=== PATIENT | female | born 1970 | race Caucasian/White ===

== ENCOUNTER 2017-04-19 11:26 | Emergency (ER) | payer OTHER ==
[2017-04-19 11:32] VITALS: BP 149/79
[2017-04-19] MEDS ORDERED: [UNRECOGNIZED DRUG - OTHER] ONE (12:00)
[2017-04-19] MEDS ORDERED: [UNRECOGNIZED DRUG - OTHER] LEFTEYE ONE (12:00)
--- NOTE | 2017-04-19 12:07 | ERNOTE ---
ENT HPI Date of Service: 04/19/17 Presenting Symptoms: eye pain Time Seen by Provider: 04/19/17 11:45 Source: patient Exam Limitations: no limitations - Immun/Allergies/Home Medications Immunizations: IMMUNIZATION HX Immunizations Up to Date Yes History of Influenza Vaccine Yes Allergies/Adverse Reactions: Allergies Allergy/AdvReac Type Severity Reaction Status Date / Time erythromycin base Allergy Mild Hives, rash Verified 04/19/17 11:32 azithromycin [From Zithromax] Allergy Unknown Verified 04/19/17 11:32 Home Medications: HOME MEDICATIONS ALPRAZolam [Xanax] 0.25 mg PO TID PRN 09/10/15 [Last Taken Unknown] Levothyroxine Sodium [Synthroid] 150 mcg PO DAILY 09/10/15 [Last Taken Unknown] Multivitamins [Multivitamin Mary] 1 cap PO DAILY 09/10/15 [Last Taken Unknown] Solon-3 Fatty Acids/Fish Oil [Fish Oil 1,000 mg Capsule] 1 each PO DAILY [Last Taken Unknown] Senna/Fennel [Natural Veg Laxative Tablet] 3 each PO DAILY 09/10/15 [Last Taken Unknown] Bacitracin [Bacitracin Ophthalmic] 3.5 gm LEFTEYE BID #1 tube 04/19/17 [Last Taken Unknown] Oxybutynin Chloride [Ditropan Xl] 10 mg PO DAILY 04/19/17 [Last Taken Unknown] Venlafaxine HCl [Effexor] 75 mg PO DAILY 04/19/17 [Last Taken Unknown] - History of Present Illness Narrative: patient present to the ED for left eye pain and redness. states it started Thursday night and has progressively gotten worse. . she did try a warm compress x1. Date (Duration): 04/19/17 Severity: Present: mild ENT Location: Present: eye (L) Prearrival Treatment: Present: over the counter meds, flushing eys Modifying Factors - Improves: Reports: nothing Modifying Factors - Worsens: Reports: nothing Associated Symptoms - ENT: Reports: denies symptoms Review of Systems - Review of Systems Constitutional: Present: no symptoms reported EYE: Present: see HPI, eye pain. Absent: eye discharge, blurred vision, double vision, vision changes, tearing ENT: Present: no symptoms reported Respiratory: Present: no symptoms reported Cardiology: Present: no symptoms reported Gastrointestinal/Abdominal: Present: no symptoms reported Genitourinary: Present: no symptoms reported Musculoskeletal: Present: no symptoms reported Skin: Present: no symptoms reported Neurological: Present: no symptoms reported Endocrine: Present: no symptoms reported Hematologic/Lymphatic: Present: no symptoms reported Psych: Present: no symptoms reported All Other Systems: All systems neg except as marked - Patient's Past Medical History Patient History - Medical: Depression, Hypothyroidism, Kidney stone, UTI'S, Other Patient History - Cardiac/Respiratory: No pertinent hx Patient History - Cancer: No Hx of Cancer Patient History - Surgical Procedures: Back Surgery, Other, Orthopedic Patient History - Other: None - Social History Living Situations: spouse Abuse History: No History of abuse Psych History: Current tx/ever been on anti-depressants or anti-anxiety meds, Hx of Anxiety, Hx of Depression Smoking Status: Never smoker Have you smoked in the past 12 months: No Alcohol Use: occasionally Drug Use: none - Immunizations Immunizations Up to Date: Yes History of Influenza Vaccine: Yes Physical Exam - Physical Exam Narrative: redness to bottom eye lid with a small white head. redness and tenderness to lower lid General Appearance: Present: wd/wn, alert, no apparent distress Head Exam: Present: no evidence of injury, tenderness Eye Exam: Normal inspection: bilateral, PERRL: bilateral, EOMI: bilateral Ears, Nose, Throat: Present: normal ENT inspection, normal pharynx Neck: Present: normal inspection, nontender Respiratory: Present: no respiratory distress, normal breath sounds, no accessory muscle use, chest nontender, lungs clear Cardiovascular/Chest: Present: regular rate, rhythm, no murmur, normal peripheral pulses Gastrointestinal/Abdominal: Present: normal bowel sounds, nontender, nondistended, soft, no organomegaly Extremity Exam: Present: normal inspection, non-tender, normal range of motion, no edema Neurological Exam: Present: alert, oriented, normal mood/affect, no motor/ sensory deficits Skin Exam: Present: normal color, warm/dry, other Lymphatic Exam: Present: no adenopathy ED Progress - Vital Signs Patient's Vital Signs:: I have reviewed the patient's vital signs. Vital Signs: Vital Signs 04/19/17 11:29 Temperature 36.7 C Pulse Rate 73 Respiratory 12 Rate Blood Pressure 149/79 O2 Sat by Pulse 100 Oximetry - Progress/Reassessment Chief Complaint: Eye Injury/Trauma Progress:: Improved Plan - Plan Plan: Patient will return to the emergency room or follow-up with her eye doctor or primary care provider if symptoms worsen or persist. Departure Clinical Impression: Hordeolum Qualifiers: Hordeolum type: internum Laterality: left Eyelid: lower Qualified Code(s): H00.025 - Hordeolum internum left lower eyelid - Departure Disposition: Home Follow Up Needed Condition: Stable Instructions: Stye Additional Instructions: Continue any previous home medications as prescribed. She may do a warm compress to her face for 10 minutes 4 times a day to help with pain. Follow up with her primary care doctor or Eye doctor in the next few days if needed. Return to the emergency room if symptoms persist or become worse or if she develops a fever. Referrals: Seth Burgos DO [Primary Care Provider] - Prescriptions: Bacitracin [Bacitracin Ophthalmic] 3.5 gm LEFTEYE BID #1 tube
== END 2017-04-19 12:10 | disposition home or self-care (01) ==
LOC: ER 11:26
DX: H00.025 Hordeolum internum left lower eyelid (principal); F32.89 Other specified depressive episodes; E03.9 Hypothyroidism, unspecified

== ENCOUNTER 2017-07-23 06:56 | Day surgery (SDC) | payer OTHER ==
[~2017-07-23 06:56] MED LIST: RINGER'S SOLUTION,LACTATED 1,000 ML IV PRN
[2017-07-23] MEDS ORDERED: RINGER'S SOLUTION,LACTATED 1,000 ML IV ONE (07:40)
[2017-07-23] MEDS ORDERED: SCOPOLAMINE HYDROBROMIDE 1.5 MG PATC TD ONE ×2 (08:05→08:30)
[2017-07-23] MEDS ORDERED: BUPIVACAINE HCL/EPINEPHRINE/PF 30 ML VIAL IJ ONE (09:00)
[2017-07-23] MEDS ORDERED: traMADol HCL 50 MG TABLET ONE (10:04)
[2017-07-23 10:50] VITALS: BP 141/74
[2017-07-23] MEDS ORDERED: traMADol HCL 50 MG TABLET PO ONE (11:00)
[2017-07-23] MEDS ORDERED: IBUPROFEN 800 MG TABLET PO ONE (11:00)
--- NOTE | 2017-07-23 11:27 | OR ---
Operative Report - Dictated Report Narrative: Operative report: 07/23/2017 Preoperative diagnosis: Right Hydrosalpinx Postoperative diagnosis: Right pelvic congestion Procedure: Diagnostic laparoscopy with right salpingectomy Surgeon: Gwen Barry D.O. Compound Specialist: OR staff Anesthesia: Gen. IV fluids: 300 Milliliters Urine output: Minimal amount of clear urine Findings: Absent left fallopian tube and ovary, slightly enlarged right fallopian tube with multiple dilated and torturous blood vessels within the broad ligament, normal-appearing right ovary with small simple ovarian cyst, evidence of gastric bypass with omental adhesions to the anterior vertical supraumbilical scar peritoneum, bowel that was in the left upper quadrant had white strands of tissue adherent to the bowel EBL: Minimal Drains: None Pathology: Right fallopian tubes Complications: None Condition: Stable The patient was taken to the operating room. Anesthesia was found to be adequate. The patient was prepped and draped in the normal sterile fashion in the dorsal lithotomy position. A sterile speculum was then inserted into the vagina. The Gemisimo uterine manipulator was then inserted into the uterus. The speculum was removed. A red rubber was then inserted into the bladder to drain throughout the procedure. Attention was then turned to the abdomen. Local anesthetic was then injected within the umbilicus. A 5 mm skin incision was then made with the scalpel. A hemostat was then used to bluntly dissect down to the fascia. The 5 mm camera was then inserted into the trocar and under direct visualization inserted into the abdomen. The abdomen was then insufflated to 12 mmHg. The abdomen was then surveyed and noted as above. General surgery was called to inspect the left upper quadrant bowel and this was noted to be benign and postsurgical changes related to her gastric bypass surgery. Attention was then turned to the left lower quadrant, the peritoneum was mapped with local anesthetic, skin incised, subcutaneous tissue bluntly dissected, and an 8 mm trocar entered into the peritoneum under direct visualization. This was all repeated in the right lower quadrant with a 5 mm trocar. The fallopian tube was then grasped. Electrocautery was then used to sequentially cauterize, cut, and remove the entire fallopian tube. The fallopian tubes were then removed under direct visualization and sent to pathology. The pedicles were again cauterized, and then inspected and found to be hemostatic. The abdomen was then desufflated. The trochars were removed under direct visualization. The skin incisions were then reapproximated with 4-0 Vicryl, benzoin and Steri-Strips. Band-Aids were then placed. The Hulka uterine manipulator was then removed and sites were hemostatic. The red rubber catheter was then removed. Clear yellow urine was noted throughout the entire procedure. The patient tolerated the procedure well. Sponge, lap, needle, and instrument counts were correct throughout the entire procedure. The patient was taken to the recovery room in stable condition.
== END 2017-07-23 06:57 | disposition home or self-care (01) ==
LOC: AMB 06:56
PROVIDERS: ATTEND Obstetrics & Gynecology Gynecologic Oncology
PROC: 0UT54ZZ Resection of Right Fallopian Tube, Percutaneous Endoscopic Approach (ICD-10-PCS; principal; 2017-07-23 08:00)
DX: N70.11 Chronic salpingitis (principal); N94.89 Other specified conditions associated with female genital organs and menstrual cycle; N73.6 Female pelvic peritoneal adhesions (postinfective); E03.9 Hypothyroidism, unspecified; D51.9 Vitamin B12 deficiency anemia, unspecified; F41.9 Anxiety disorder, unspecified; F32.9 Major depressive disorder, single episode, unspecified; E66.9 Obesity, unspecified; Z68.36 Body mass index [BMI] 36.0-36.9, adult; Z87.891 Personal history of nicotine dependence

== ENCOUNTER 2020-05-15 08:00 | Inpatient (IN) ==
--- NOTE | 2020-05-02 08:14 | ANES ---
Anesthesia Pre Procedure Eval HOME MEDICATIONS oxybutynin chloride 10 mg tablet,extended release 24 hr 10 mg PO DAILY #90 tab 11/20/19 [Last Taken Unknown] magnesium glycinate 100 mg tablet 800 mg PO HS tab 01/12/20 [Last Taken Unknown] trazodone 50 mg tablet See Rx Instructions PO HS PRN #90 tab 01/12/20 [Last Taken Unknown] vilazodone 40 mg tablet 40 mg PO DAILY #90 tab 02/13/20 [Last Taken Unknown] alprazolam 0.25 mg tablet 0.25 mg PO TID PRN #90 tab 03/05/20 [Last Taken Unknown] naltrexone microspheres 380 mg intramuscular suspension,extended release 380 mg IM QMONTH #1 ea 03/12/20 [Last Taken Unknown] acetaminophen 500 mg tablet 1,000 mg PO Q6H PRN tab 04/04/20 [Last Taken Unknown] ibuprofen 200 mg tablet 600 mg PO TID-QID PRN tab 04/04/20 [Last Taken Unknown] naltrexone 50 mg tablet 50 mg PO DAILY #31 tab 04/09/20 [Last Taken Unknown] levothyroxine 200 mcg tablet 200 mcg PO DAILY #60 tab 04/11/20 [Last Taken Unknown] lisinopril 10 mg tablet 10 mg PO DAILY #90 tab 04/13/20 [Last Taken Unknown] Allergies/Adverse Reactions: Allergies Allergy/AdvReac Type Severity Reaction Status Date / Time erythromycin base Allergy Mild Hives, rash Verified 05/01/20 16:00 - Planned Procedure Planned Procedure: Left Total Knee Arthroplasty Medication List Reviewed:: Yes Allergies Verified: Yes Medical History (Last Reviewed 05/02/20 @ 08:12 by Wallace Franco CRNA) Bladder spasm (Chronic) History of hypothyroidism (Chronic) Osteoarthritis of left knee (Acute) s/p ACL repair 1997 Hordeolum (Acute) Laceration of head (Acute) Anxiety Onset Date: Unknown B12 deficiency Onset Date: Unknown Depression Onset Date: Unknown Fatigue Onset Date: 10/31/14 Hypothyroidism Onset Date: Unknown Menopausal syndrome Onset Date: 10/31/14 Obesity Onset Date: 12/13/14 Abnormal mammogram Onset Date: 12/13/14 Bunion Onset Date: 07/02/15 Calculus of kidney Onset Date: Unknown Hydrosalpinx Onset Date: 07/01/17 Oligomenorrhea Onset Date: 10/31/14 Ovarian cyst Onset Date: 11/28/14 Pelvic mass Onset Date: 11/28/14 Pelvic pain in female Onset Date: 10/31/14 UTI (urinary tract infection) Onset Date: Unknown Vaginitis Onset Date: 04/06/14 Surgical History (Last Reviewed 05/02/20 @ 08:12 by Wallace Franco CRNA) History of carpal tunnel release Right H/O colonoscopy Onset Date: 11/28/09 [facility] - normal H/O gastric bypass Onset Date: ~12/2008 [place] H/O toe surgery Onset Date: 09/13/15 bilateral 2nd toes by Dr. Rhonda Link History of bunionectomy Onset Date: 09/13/[address]Heather Link History of esophageal dilatation Onset Date: 11/28/09 History of esophagogastroduodenoscopy Onset Date: 11/28/09 [facility] History of repair of ACL Onset Date: ~1996 left History of salpingectomy Onset Date: ~07/23/17 right - Hx of neck surgery Onset Date: ~2006 [place] -fusion of C5-6 S/P laparoscopic procedure Onset Date: ~07/23/17 Family History (Last Reviewed 05/02/20 @ 08:12 by Wallace Franco CRNA) Aunt , maternal Ovarian cancer 40s Brother Alive and well Father Hypertension Anemia Hepatitis C Mother Diabetes Alzheimers disease Lung cancer Cancer Sister Hypothyroidism Migraines H/O: hysterectomy - Family Anesthesia History Family History:: no untoward family reactions to anesthesia, no familial bleeding tendencies, no family history of clotting disorders, no family history of premature - Airway/Neck/Teeth Within Normal Limits:: Yes Teeth Condition: intact Mallampatti Score: 1 Thyromental (T-M) distance: > 6 cm Mandibulo Hyoid distance: > 3 cm - Respiratory Smoking Status: Former smoker Discussed smoking cessation including day of surgery: No Sleep Apnea currently treated: No Sleep Apnea by current assessment: No Discussed Risks/Treatment of ZANE: No - Cardiovascular Tolerate Activity: Fair Heart Sounds: S1 & S2, Regular - Anesthesia Assessment and Plan ASA Class: PS, III Anesthesia Type Plan: Block - Left ultrasound guided adductor canal nerve block for postop analgesia, Spinal
[2020-06-19] MEDS ORDERED: ROPIVACAINE HCL/PF 100 MG, EPINEPHrine 0.2 MG, KETOROLAC TROMETHAMINE 30 MG in NORMAL S... IJ PRN (06:00)
[2020-06-19] MEDS ORDERED: ceFAZolin SODIUM 1 GM VIAL IV PRN (06:00)
[2020-06-19] MEDS ORDERED: MORPHINE SULFATE 15 MG TABLET.SA PO PRN (06:00)
[2020-06-19] MEDS ORDERED: TRANEXAMIC ACID 1,000 MG in NORMAL SALINE 100 ML IV PRN (06:00)
[2020-06-19] MEDS ORDERED: BUPIVACAINE HCL/EPINEPHRINE 50 ML VIAL IJ ONE (09:39)
[2020-06-19] MEDS ORDERED: BUPIVACAINE HCL/PF 10 ML VIAL ONE (09:40)
[2020-06-19] MEDS ORDERED: PROPOFOL VIAL IV ONE ×2 (09:40→11:39)
[2020-06-19] MEDS ORDERED: MIDAZOLAM HCL/PF 5 MG/ML VIAL ONE (09:40)
[2020-06-19] MEDS ORDERED: ceFAZolin SODIUM 1 GM VIAL ONE (09:53)
[2020-06-19] MEDS ORDERED: ISOPROPYL ALCOHOL 480 APPL BTL MC ONE (09:53)
[2020-06-19] MEDS ORDERED: SCOPOLAMINE HYDROBROMIDE 1.5 MG PATC TD ONE (10:10)
[2020-06-19] MEDS: RINGER'S SOLUTION,LACTATED 1,000 ML IV PRN ×3 (10:10→12:39)
[2020-06-19] MEDS ORDERED: ONDANSETRON HCL/PF 2 MG/ML VIAL ONE (10:13)
[2020-06-19] MEDS ORDERED: ACETAMINOPHEN 500 MG TABLET PO PRN (12:50)
[2020-06-19] MEDS ORDERED: ZOLPIDEM TARTRATE 5 MG TABLET PO PRN (12:50)
[2020-06-19] MEDS ORDERED: MAG HYDROX/ALUMINUM HYD/SIMETH 30 ML UDC PO PRN (12:50)
[2020-06-19] MEDS ORDERED: diphenhydrAMINE HCL 50 MG/ML VIAL IV PRN (12:50)
[2020-06-19] MEDS ORDERED: MAGNESIUM HYDROXIDE 30 ML UDC PO PRN (12:50)
[2020-06-19] MEDS ORDERED: DEXTROSE 5%-LACTATED RINGERS 1,000 ML IV PRN (12:50)
--- NOTE | 2020-06-19 12:50 | OR ---
Operative Report - Dictated Report Narrative: Date: 06/19/2020 Preoperative diagnosis: Posttraumatic left knee degenerative joint disease. Retained metallic implant Postoperative diagnosis: Posttraumatic left knee degenerative joint disease. Retained metallic implant Procedure: Left total knee arthroplasty. Removal of deep implant tibia Surgeon: Derek Leo M.D. Emissions Testing Technician: Marquise Felton PA-C (provided and essential set of skilled, educated hands that assisted with transfer, positioning, prepping, draping, manipulation, retraction, placement of jigs, injection, insertion of implants, irrigation, closure wounds, and dressings all of which could not be performed by the available surgical crew) Anesthesia: Spinal with regional block and local periarticular joint injection. Complications: None Specimens: Bone. Estimated blood loss: Minimal. Tourniquet time: 100 minutes at 350 millimeters of mercury. Retained implants: Depuy Attune size 5 narrow left lugged cemented posterior stabilized femoral component. Size 4 fixed-bearing cemented revision tibial platform. 5 by 10 millimeter posterior stabilized cross-linked tibial insert. 38 millimeter medialized patella button. Indications: Mrs. Burt is a 50-year-old female who previously sustained a tear to her anterior cruciate ligament and had this reconstructed and developed posttraumatic arthropathy. This patient was followed in my clinic for period of time with significant complaints of left knee pain consistent with arthritic changes. She had failed conservative measures including, but not limited to, activity modification, passage of time, medications, and other conservative measures. Patient wished to proceed with surgical treatment. The risks, benefits, and alternatives were discussed in clinic. The risks of , blood clots, bleeding, infection, nerve/tendon blood vessel/ injury, malposition of components, intraoperative fracture, postoperative limited range of motion, persistent pain, failure of components, and need for additional procedures. Patient wished to proceed consent was obtained after answering all questions. Procedure: After marking the correct extremity on the floor, the patient was taken to the operating room. A timeout was performed. IV antibiotics consisting of Ancef were administered prior to the procedure. A regional followed by spinal anesthetic was induced by anesthesia, per my request, on the operative table with all bony prominences well-padded. Nguyen catheter was placed, and a bump was placed under the operative side buttock. SCDs and ZE hose were utilized on the nonoperative leg. A well-padded tourniquet was applied to the operative thigh. The operative leg was then pre-scrubbed with alcohol, prepped, and draped in a standard sterile fashion. After exsanguinating the extremity with an Esmarch bandage, the tourniquet was inflated. After marking out the anterior knee for standard incision centered over the patella, the skin was incised and dissected down to the joint retinaculum. The joint retinaculum was marked out as well as the horizontal axis of the patella, and a standard medial parapatellar arthrotomy was then made. The most proximal aspect of the quadriceps tendon and the patella tendon insertion were protected from release. A partial synovectomy was performed as well as a resection of the infrapatellar fat pad. The distal femoral fat pad proximal to the trochlea was also resected using cautery. The soft tissues were elevated off the medial aspect of the proximal tibia using a Ortega elevator ensuring that we did not transect the medial collateral ligament. Upon initial evaluation range of motion was approximately 5 degrees to 120 degrees of flexion. There were signs of advanced arthrosis in the medial, lateral, and patellofemoral joint spaces. There were large marginal osteophytes which were removed with a rongeur. The knee was hyperflexed and the patella was tucked laterally. Protecting the surrounding soft tissues with Homans, an entry drill was placed down the femoral canal using Whitesides line for guidance into the entry point. The intramedullary femoral alignment lindsey was utilized in order to cut the distal femur in 5 degrees of valgus resecting 10 millimeters of bone. Next the distal femur was sized to a size 5. A posterior referencing guide was utilized to place the distal femoral cutting block in 3 degrees of external rotation. This was pinned into place. The rotation was confirmed both visually and based on anatomic landmarks. The 4 in 1 cutting jig of the appropriate size was utilized in order to make all bony cuts. The megan wing was used to ensure no notching. Retractors were utilized in order to protect surrounding soft tissues. This cut did not result in any excessive notching. We then cut the box centered over the distal femur. This allowed for resection of the anterior and posterior cruciate ligaments. I then turned my attention to the preparation of the tibia. Using an extra medullary tibial alignment lindsey, 3 millimeters of bone was resected off the medial articular surface. This was made perpendicular to the mechanical axis of the joint with the alignment lindsey centered over the ankle mortise. The alignment lindsey was checked and was noted to be parallel to the mechanical axis, centered over the medial one third of the tibial tubercle, paralleling the anterior surface of the tibia. When we attempted to cut through the bone we encountered a metallic interference screw. This was removed antegrade without any significant complications. We then turned our attention to the remaining meniscus and soft tissues. These were removed while protecting the surrounding ligaments and soft tissues. The marginal osteophytes off the anterior, posterior, medial, lateral aspects of the femur and tibia were removed. The tibia was sized out to a size 4. Next the tibia was drilled and punched in an externally rotated position. Next the trial femur and a series of tibial inserts were utilized in order to allow for full extension and maximal flexion. It was found that a 10 millimeter insert gave the best range of motion and stability at multiple flexion points as well as at full extension there was less than 2 mm of gapping both medially and laterally. There is minimal anterior translation with the knee at 90 degrees of flexion and no signs of being able to dislocate the knee. The patella was then prepared. The initial thickness was 22 millimeters. This was reamed down to 13 millimeters parallel to the anterior surface of the patella. It was sized out to a size 38 medialized patella button. This was then drilled and trialed. Without any medial restraint the patella tracked appropriately and did not sublux or dislocate. At this point, it was felt these were the appropriate sized implants, and all trials were removed. The standard periarticular joint injection consisting of ropivacaine, Toradol, and epinephrine were injected into the periarticular joint tissues. The bony surfaces were thoroughly irrigated with a pulsatile-suction saline irrigation device. A bone plug from the prior resected anterior chamfer cut was placed into the drill hole at the distal femur. The bony surfaces were then dried in preparation for placement of the implants. The cement was vacuum mixed per the customer acquisition manager's instructions. The cement was placed on the dry bony surfaces and posterior aspect of the implants. The implants were impacted into place, removing all extruded cement. At this point anesthesia administered tranexamic acid per protocol intravenously. The knee was placed in extension with axial loading with the trial insert while the cement cured. Once the cement cured, all remaining extruded cement was removed. The knee was placed through a range of motion with the trial insert to ensure appropriate range of motion and stability. Final range of motion was approximately 0 to 120 degrees. The knee was again thoroughly irrigated with pulsatile saline lavage. The final polyethylene insert was then impacted into place ensuring no retained soft tissues. The remaining periarticular joint injection was injected. A medium Hemovac drain was placed exiting superior laterally. The knee was then placed over a triangle and the arthrotomy was closed with interrupted #1 Vicryl after thoroughly irrigating the joint. The deep and subcutaneous tissues were closed with interrupted 0 and 3-0 Vicryl respectively. Skin was closed with a running subcutaneous 3-0 Monocryl and Prineo Dermabond dressing. 4 x 4's, Sof-Rol, and a full leg Rashard wrap were applied. All sponge, needle, blade, and instrument counts were correct prior to closing the wounds. Postoperative condition: The patient was awoken and transferred to the postanesthesia care unit in stable condition. Plan is to be admitted to the inpatient medical/surgical floor postoperatively for 24 hours of IV antibiotics, physical therapy, occupational therapy, and medical comanagement. Patient will be weightbearing as tolerated with range of motion as tolerated. DVT prophyl axis will be with SCDs, ZE hose, and pharmacological anticoagulation. Anticipated hospital stay is approximately 1-3 days.
[2020-06-19] MEDS ORDERED: traZODone HCL 50 MG TABLET PO PRN (12:52)
[2020-06-19] MEDS ORDERED: ALPRAZolam 0.25 MG TABLET PO PRN (12:52)
--- NOTE | 2020-06-19 13:15 | ANES ---
Post Anesthesia Assessment - Vital Signs Vitals: Last Vital Signs Temp 36.3 C 06/19/20 13:05 Pulse 108 H 06/19/20 13:10 Resp 16 06/19/20 13:10 BP 130/54 06/19/20 13:10 Pulse Ox 97 06/19/20 13:10 Airway Patency: Normal - Mental Status Level Of Consciousness: Awake - Pain Level Pain Score: 0 - N/V Assessment Nausea/Vomiting Presence: None Dehydration:: No
--- NOTE | 2020-06-19 13:15 | ANES ---
Post Anesthesia Discharge - Transfer of Care Transfer of Care handoff given to nurse: Yes - Discharge from PACU Discharge from PACU when meets criteria: Yes
--- NOTE | 2020-06-19 13:18 | ANES ---
Anesthesia Procedure Note Procedure Note: ANESTHESIA PROCEDURE NOTE Date of procedure: 06/19/2020. Time of procedure: 1035. Performed by: Sushil West CRNA Welcome Wagon Hostess: Kacie Landis RN . Preprocedure diagnosis: Left knee DJD. Post procedure diagnosis: Same. Procedure: Ultrasound-guided left adductor canal block Indications: Postoperative analgesia. Findings: Patient brought operating room #2 and given a spinal anesthetic. The patient's left inner thigh was prepped with ChloraPrep. Ultrasound utilized to identify the saphenous nerve in the left adductor canal. A 20-gauge 4 inch regional block needle was advanced under ultrasound guidance until tip of needle was placed just proximal to the saphenous nerve. A total of 30 mL of 0.25% Marcaine with epinephrine 1-200,000 was injected with adequate spread of local anesthesia noted a round of the nerve. Regional block needle was removed intact. EBL: Minimal. Fluids: N/A. Specimen: N/A. Post procedure condition: The patient tolerated the procedure well. No complications were noted. Thank you for this consultation Sushil West CRNA
[2020-06-19] MEDS: KETOROLAC TROMETHAMINE 15 MG/ML VIAL IV SCH ×2 (14:27→19:09)
[2020-06-19] MEDS: ceFAZolin SODIUM 1 GM in DEXTROSE 5 % IN WATER 100 ML IV SCH ×4 (14:51→20:40)
[2020-06-19] MEDS: oxyCODONE HCL/ACETAMINOPHEN 1 TAB TABLET PO PRN ×2 (16:46→21:48)
[2020-06-19] MEDS ORDERED: LISINOPRIL 10 MG TABLET PO ONE (17:15)
[2020-06-19] MEDS: ONDANSETRON HCL/PF 2 MG/ML VIAL IV PRN ×2 (17:39→21:42)
[2020-06-19] MEDS: MORPHINE SULFATE 15 MG TABLET.SA PO SCH (20:46)
[2020-06-19] MEDS ORDERED: SENNOSIDES/DOCUSATE SODIUM 1 TAB TABLET PO SCH (21:00)
[2020-06-19] MEDS ORDERED: MAGNESIUM GLYCINATE PO SCH (21:00)
[2020-06-20] MEDS: KETOROLAC TROMETHAMINE 15 MG/ML VIAL IV SCH ×3 (01:16→12:36)
[2020-06-20] MEDS: ceFAZolin SODIUM 1 GM in DEXTROSE 5 % IN WATER 100 ML IV SCH ×2 (03:15)
[2020-06-20] MEDS: ONDANSETRON HCL/PF 2 MG/ML VIAL IV PRN ×2 (03:25→08:09)
[2020-06-20] MEDS: oxyCODONE HCL/ACETAMINOPHEN 1 TAB TABLET PO PRN ×2 (03:27→09:00)
[2020-06-20 06:36] LABS: Hematocrit 30.6 % (37.0-47.0); Hemoglobin 9.8 gm/dL (12.5-16.0); Mean Cell Volume 87.4 fl (78-100); Mean Platelet Volume 10.2 fl (8-12.5); Platelet Count 219 K/mm3 (150-450); Red Cell Distribution Width 15.3 % (11.5-14.0); White Blood Count 6.1 K/mm3 (4.0-10.5)
[2020-06-20 06:43] LABS: Anion Gap 9.4 mmol/L (6.8-13.8); BUN/Creatinine Ratio 10.9 (9.0-21.6); Calcium * 8.7 mg/dL (7.9-10.9); Carbon Dioxide 29.7 mmol/L (24-32.6); Estimated Creat Clear 47.4; Potassium 4.1 mmol/L (3.4-4.6)
[2020-06-20] MEDS ORDERED: PANTOPRAZOLE SODIUM 40 MG TABLET.EC PO SCH (07:00)
[2020-06-20] MEDS: MORPHINE SULFATE 15 MG TABLET.SA PO SCH (08:10)
[2020-06-20] MEDS ORDERED: LISINOPRIL 10 MG TABLET PO SCH (09:00)
[2020-06-20] MEDS ORDERED: OXYBUTYNIN CHLORIDE 5 MG TABLET PO SCH (09:00)
[2020-06-20] MEDS ORDERED: NALTREXONE HCL 50 MG TABLET PO SCH (09:00)
--- NOTE | 2020-06-20 11:12 | DS ---
(1) Status post left knee replacement Problem: Acute (2) Hypertension Problem: Chronic (3) Hypothyroidism Problem: Chronic Date of Discharge:: 06/20/20 Hospital Course: Mrs. Burt was admitted to the floor after undergoing left total knee arthroplasty. Tolerated this well. Was admitted to the floor postoperatively for 24 hours of IV antibiotics, pain control, medical comanagement, and occupational and physical therapy. OT and PT were consulted to assist with activities of daily living and ambulation. Was made weightbearing as tolerated with range of motion as tolerated. Pain was initially controlled with IV regimen. This was transitioned to oral once tolerating a by mouth intake. Was resumed on home diet and medications. Had a Nguyen catheter inserted and the operating room which was discontinued on postoperative day 1. A drain was placed intraoperatively into the knee which was discontinued on postoperative day 1. Lovenox SCD and ZE hose were utilized for DVT prophylaxis. Vital signs remained stable to the hospital course. Serial labs were obtained which showed a final hemoglobin of 9.8 grams. BMP was reviewed and was stable. Physical examination throughout the hospital course showed an extremity that had sensation that was intact to light touch, palpable pulses, a benign wound, motor intact to the toes, ankle, and knee. Knee range of motion was approximately 5 degrees to 75 degrees. Once an oral pain regimen was tolerated and physical therapy goals were met, it was felt that they were stable for discharge to home. Instructions: Continue with weightbearing as tolerated and range of motion as tolerated. It is OK to shower on the wound if it is not draining. If you note any drainage or for comfort you can cover with dry gauze and tape. Change every 2-3 days as ne eded. Continue with physical therapy. Resume home diet. Report any fever over 101.5 Fahrenheit, uncontrolled pain, increased drainage, foul odor of drainage, new or increased calf pain or shortness of breath, or any other significant complaints. A 325mg dialy aspirin will be started after finishing anticoagulation if not allergic. Continue with ZE hose on the operative extremity until instructed otherwise. No driving until instructed otherwise. Follow up in approximately 10-14 days. Procedures Performed: see notes below List Procedures: Left total knee arthroplasty Results and Findings: Lab Pending Results 06/20/20 06:31: WBC 6.1, RBC 3.50 L, Hgb 9.8 L, Hct 30.6 L, MCV 87.4, MCH 28.0, MCHC 32.0, RDW 15.3 H, Plt Count 219, MPV 10.2 06/20/20 06:31: Sodium 135, Plasma Sodium 135, Potassium 4.1, Chloride 100, Carbon Dioxide 29.7, Anion Gap 9.4, BUN 11, Creatinine 1.01, Est GFR (Non-Af Amer) 61, BUN/Creatinine Ratio 10.9, Random Glucose 112 H, Calcium 8.7 Discharge Location: Home Disposition: Home self-care Condition: Good Discharge Activity: Activity as tolerated, Weight bearing, Other - With wheeled walker Discharge Diet: Low salt Referrals: Xi Sandhu DO [Primary Care Provider] - Prescriptions (Any new or edited meds): levothyroxine 200 mcg tablet 200 mcg PO DAILY #60 tab Transmission Status: Received by Pharmacy Enoxaparin Sodium [Lovenox] 40 mg SC Q24H #7 disp.syrin Transmission Status: Sent to [facility] #[id number] Morphine Sulfate [Ms Contin] 15 mg PO Q12H #14 tablet.sa Transmission Status: Received by [facility] #[id number] oxyCODONE HCL/ACETAMINOPHEN [Percocet 5 MG/325 MG] 2 tab PO Q4H PRN #56 tab PRN Reason: Moderate Pain (Pain Scale 4-6) Transmission Status: Received by [facility] #[id number] Ondansetron HCl [Zofran] 4 mg PO Q6H #30 tab Transmission Status: Pending to [facility] #[id number] Complete Home Medications List: Complete Home Medication List: oxybutynin chloride 10 mg tablet,extended release 24 hr 10 mg PO DAILY #90 tab 11/20/19 magnesium glycinate 100 mg tablet 800 mg PO HS tab 01/12/20 vilazodone 40 mg tablet 40 mg PO DAILY #90 tab 02/13/20 ibuprofen 200 mg tablet 600 mg PO TID-QID PRN tab 04/04/20 naltrexone 50 mg tablet 50 mg PO DAILY #31 tab 04/09/20 omeprazole 40 mg capsule,delayed release 40 mg PO DAILY #30 cap 05/08/20 alprazolam 0.25 mg tablet 0.25 mg PO TID PRN #90 tab 05/28/20 levothyroxine 200 mcg tablet 200 mcg PO DAILY #60 tab 06/19/20 lisinopril 10 mg tablet 10 mg PO DAILY #90 tab 06/19/20 trazodone 50 mg tablet See Rx Instructions PO HS PRN #90 tab 06/19/20 Enoxaparin Sodium [Lovenox] 40 mg SC Q24H #7 disp.syrin 06/20/20 Morphine Sulfate [Ms Contin] 15 mg PO Q12H #14 tablet.sa 06/20/20 Ondansetron HCl [Zofran] 4 mg PO Q6H #30 tab 06/20/20 oxyCODONE HCL/ACETAMINOPHEN [Percocet 5 MG/325 MG] 2 tab PO Q4H PRN #56 tab 06/20/20 Amb Orders for Discharge: PT Evaluation and Treatment* Facility: [facility], Location: Rehabilitation Services
[2020-06-20] MEDS ORDERED: ENOXAPARIN SODIUM 40 MG/0.4 ML SYRG SC SCH (11:51)
[2020-06-20 13:46] VITALS: BP 113/55
== END 2020-06-20 13:05 | disposition home or self-care (01) | DRG 470 ==
LOC: EDSTATUS 06-19 09:30 → MS 06-19 09:31
PROVIDERS: ADMIT Orthopaedic Surgery; ATTEND Orthopaedic Surgery
DX: M17.32 Unilateral post-traumatic osteoarthritis, left knee; M25.762 Osteophyte, left knee; Z98.890 Other specified postprocedural states